=== PATIENT | female | born 1995 | race Two or more races ===

== ENCOUNTER 2018-07-03 13:47 | Outpatient (CLI) | payer MEDICAID ==
[~2018-07-03] VITALS: Ht 170.2 cm; Wt 95.3 kg
[2018-07-03 13:56] VITALS: Ht 170.2 cm; Wt 95.3 kg
[2018-07-03 14:12] VITALS: BP 138/89; PULSE 99; RESP 20
[2018-07-03] MEDS ORDERED: LACTATED RINGER'S 1,000 ML IV SCH (15:36)
[2018-07-03] MEDS ORDERED: LIDOCAINE 1% (MPF) 30 ML INJ INJ PRN (16:00)
[2018-07-03] MEDS ORDERED: BUTORPHANOL 2 MG INJ IV PRN (16:00)
[2018-07-03] MEDS ORDERED: CARBOPROST 250 MCG INJ IM PRN (16:00)
[2018-07-03] MEDS ORDERED: OXYTOCIN 30 UNITS/LR 500 ML IV SCH ×2 (16:00)
[2018-07-03] MEDS ORDERED: OXYTOCIN 30 UNITS/LR 500 ML IV PRN (16:00)
[2018-07-03] MEDS ORDERED: OXYCODONE/ASPIRIN (4.88/325) TAB PO PRN (16:00)
[2018-07-03] MEDS ORDERED: MISOPROSTOL 200 MCG TAB PR PRN (16:00)
[2018-07-03] MEDS ORDERED: METHYLERGONOVINE 0.2 MG INJ IM PRN (16:00)
[2018-07-03] MEDS ORDERED: IBUPROFEN 600 MG TAB PO PRN (16:00)
--- NOTE | 2018-07-03 17:33 | TRIAGE ---
OB Triage Datetime Report Generated by CPN: 07/03/2018 17:33 Datetime: 07/03/2018 14:15 Stage of : OB Triage Maternal Assessment Level of Consciousness: Fully Conscious DTR's/Clonus: DTRs 2+; No Clonus Headache: Denies Blurred Vision: No Respiratory Effort: Unlabored; Regular Rhythm; Equal Expansion Nausea/Vomiting: Denies RUQ Epigastric Pain: Denies Lower Extremities Edema: None Degree: None Upper Extremities Edema: None Degree: None Facial Edema: None Temperature Route: Axillary Fall Risk Assessment History of Falling: (0) No Secondary Diagnosis: (0) No Ambulatory Aid: (0) Bedrest/Nurse Assist IV Therapy: (0) No Gait: (0) Normal/Bedrest/Immobile Mental Status: (0) Oriented to Own Ability Fall Score: 0 Fall Risk Score Definition: No Risk: No action required Datetime: 07/03/2018 14:07 Time of Arrival: 07/03/2018 13:42 EGA: 28.4 Arrived By: Ambulatory Arrived From: Office Chief Complaint: SENT BY CLINIC Movement: Absent Contractions: Denies/Absent Rupture of Membranes: Denies Vaginal Bleeding: None Vaginal Discharge: Denies Recent Sexual Intercouse: Denies Abdominal Trauma: Not Applicable Patient Complaints: Other Time Provider Notified: 07/03/2018 15:17 Provider Notified: Initial Plan: US [facility]ING
--- NOTE | 2018-07-03 20:50 | PN ---
Triage Information Date/Time Reason for visit: Patient seen in [facility] today, no heart rate. Patient sent for further evaluation Weeks of Gestation 28 weeks and 4 days /Para Diabetes: none Hypertention: none Additional information 22 years old 001 with single intrauterine at 28 weeks and 4 days was seen in [facility], there was no heart rate. Patient sent for further evaluation. She denies nausea, vomiting, shortness of breath, chest pain, headache, visual changes, vaginal bleeding or LOF. Objective Vital Signs Date Temp Pulse Resp B/P (MAP) Pulse Ox O2 O2 Flow FiO2 Time Delivery Rate 07/03/18 99.0 99 20 138/89 Room Air 14:12 (105) Results/Medications Results 24 hrs Laboratory Tests Test 07/03/18 14:10 Urine Color YELLOW Urine Clarity CLOUDY A Urine pH 6.0 Urine Specific [place] 1.017 Urine Ketones NEGATIVE Urine Nitrite NEGATIVE Urine Bilirubin NEGATIVE Urine Urobilinogen NEGATIVE Urine Leukocyte Esterase 3+ H Urine Microscopic RBC 7 H Urine Microscopic WBC 15 H Urine Squamous Epithelial Cells MANY A Urine Bacteria FEW A Urine Hemoglobin NEGATIVE Urine Glucose NEGATIVE Urine Total Protein 2+ H Urine Opiates Screen Negative Urine Barbiturates Negative Urine Amphetamines Screen Negative Urine Benzodiazepines Screen Negative Urine Cocaine Screen Negative Urine Cannabinoids Negative Imaging Results FINDINGS: There is a single live intrauterine fetus positioned breech. The placenta is implanted posteriorly and is grade 1. There is no placenta pr evia or abruptio evident. The amniotic fluid index measures 15.2 cm. No cardiac activity is identified. Measurements: BPD: 5.5 cm, corresponds to a age of 22 weeks 5 days Head circumference: 22.10 cm, corresponds to a age of 24 weeks 1 day Abdominal circumference: 25.06 cm, corresponds to a age of 29 weeks 2 days Femoral length: 4.46 cm, corresponds to a age of 24 weeks 5 days Average age by ultrasound: 25 weeks 2 days plus or minus 1 week 5 days Estimated weight: 982 g plus or minus 147 g. The EFW is less than 3%. IMPRESSION: 1. demise with the fetus in breech and the size of the average fetus at 25 weeks 2 days plus or minus 1 week 5 days. The estimated weight is 982 g. 2. Posterior placenta, grade 1, no previa or abruptio is evident. Physician Brook Date Time Electronically viewed and signed by Physician Brook on 07/03/2018 14:16 Disposition: Patient signed AMA Assessment/Plan 22 years old 2 para 1001 with single intrauterine at 28 weeks and 4 days with demise. The patient has history of amphetamine use. Exam, ultrasound findings discussed in detail with patient and her sister. She has history of 1 delivery. Further management with risks, benefits, alternatives discussed in detail with patient and her sister. Both expressed understanding. All of their questions answered. She she would like to go to [facility] as hospital is closer to their house. She signed AMA and left the hospital in stable condition. ARPITA SALGADO Jul 03, 2018 20:50
== END 2018-07-03 17:30 | disposition left against medical advice (07) ==
LOC: L-D 13:47 → OBT 13:47 → L-D 13:58 → OBT 17:30
PROVIDERS: ATTEND Obstetrics & Gynecology
DX: O02.1 Missed abortion (principal)
CPT/HCPCS: 76815; 76818; 80307; 81001; 87591; J7120; Z7500; G0463